=== PATIENT | male | born 1980 | race Caucasian/White ===

== ENCOUNTER 2017-06-01 10:07 | Emergency (ER) | payer BC, MEDICAID ==
[~2017-06-01] VITALS: Ht 198.1 cm; Wt 137.0 kg
[~2017-06-01 10:07] MED LIST: OMEP20CA9 PO; TRAM100C2 PO
[2017-06-01 10:10] VITALS: BP 120/90
[2017-06-01] MEDS ORDERED: KETOROLAC 30 MG/1 ML ONE (10:59)
[2017-06-01] MEDS ORDERED: KETOROLAC 30 MG/1 ML IM ONE (11:00)
== END 2017-06-01 11:59 | disposition home or self-care (01) ==
LOC: ED 11:49
DX: S83.92XA Sprain of unspecified site of left knee, initial encounter (principal); M25.462 Effusion, left knee; X58.XXXA Exposure to other specified factors, initial encounter; Y93.44 Activity, trampolining; Y92.89 Other specified places as the place of occurrence of the external cause; Y99.8 Other external cause status
CPT/HCPCS: 29515; 73564; 96372; 99284; J1885

== ENCOUNTER 2017-08-03 21:42 | Emergency (ER) | payer MEDICAID, OTHER ==
[~2017-08-03] VITALS: Ht 195.6 cm; Wt 140.9 kg
[2017-08-03 22:32] LABS: HEMATOCRIT 39.7 % (39.2-51.8); HEMOGLOBIN 13.8 g/dL (13.7-18.0); WHITE BLOOD COUNT 6.4 x10^3/uL (3.4-10)
[2017-08-03 22:44] LABS: BLOOD UREA NITROGEN 23 mg/dL (7-18)
[2017-08-03 23:02] LABS: ASPARTATE AMINO TRANSFERASE 29 U/L (15-37); IS PT STATUS REG ER OR PRE ER? YES
[2017-08-04] MEDS ORDERED: LORazepam 2 MG/ML, 1ML ONE (01:15)
[2017-08-04] MEDS ORDERED: SODIUM CHLORIDE 0.9% 1,000ML IVBOLUS ONE (01:30)
[2017-08-04] MEDS ORDERED: SODIUM CHLORIDE FLUSH 10ML SYR IVF ONE (01:30)
[2017-08-04] MEDS ORDERED: LORazepam 2 MG/ML, 1ML IVPush ONE (01:30)
[2017-08-04] MEDS ORDERED: OMNIPAQUE 350 MG/ML, 100ML BOTTLE ONE (01:45)
[2017-08-04 02:49] LABS: IS PT STATUS REG ER OR PRE ER? YES
[2017-08-04] MEDS ORDERED: KETOROLAC 30 MG/1 ML ONE (03:17)
[2017-08-04 03:28] VITALS: BP 119/84
[2017-08-04] MEDS ORDERED: KETOROLAC 30 MG/1 ML IVPush ONE (03:30)
== END 2017-08-04 03:31 | disposition home or self-care (01) ==
LOC: ED 23:59
DX: S29.012A Strain of muscle and tendon of back wall of thorax, initial encounter (principal); X58.XXXA Exposure to other specified factors, initial encounter; Y93.89 Activity, other specified; Y92.89 Other specified places as the place of occurrence of the external cause; Y99.8 Other external cause status
CPT/HCPCS: 36415; 71020; 71275; 80053; 83690; 83880; 84484; 85025; 93005; 96361; 96374; 96375; 99285; J1885; J2060; J7030; Q9967

== ENCOUNTER → 2017-11-06 | Outpatient (CLI) | payer MEDICAID ==
[~2017-11-06] MED LIST changes: +OMNIPAQUE 350 MG/ML, 100ML BOTTLE ONE
== END | disposition home or self-care (01) ==
LOC: CFH 08:16
PROVIDERS: ATTEND Surgery
DX: K40.20 Bilateral inguinal hernia, without obstruction or gangrene, not specified as recurrent (principal); Z98.890 Other specified postprocedural states
CPT/HCPCS: 74177; Q9967

== ENCOUNTER 2018-11-16 18:15 | Emergency (ER) | payer MEDICAID ==
[~2018-11-16] VITALS: Ht 182.9 cm; Wt 144.0 kg
[~2018-11-16 18:15] MED LIST changes: -OMNIPAQUE 350 MG/ML, 100ML BOTTLE ONE
[2018-11-16 18:23] VITALS: BP 135/83
[2018-11-16] MEDS ORDERED: LIDOCAINE-MPF 1%, 5ML ONE (18:54)
[2018-11-16] MEDS ORDERED: BUPIVACAINE 0.25% ONE (18:57)
[2018-11-16] MEDS ORDERED: LIDOCAINE-MPF 1%, 5ML INFIL ONE (19:30)
[2018-11-16] MEDS ORDERED: BUPIVACAINE 0.25% INFIL ONE (19:30)
--- NOTE | 2018-11-16 19:32 | NUR ---
RIGHT HAND LACERATION 3RD AND 4TH DIGIT
--- NOTE | 2018-11-16 19:38 | NUR ---
TECH AT BEDSIDE IRRIGATING WOUND
[2018-11-16] MEDS ORDERED: HYDROcodone/APAP 5/325 TABLET PO STA (20:01)
[2018-11-16] MEDS ORDERED: HYDROcodone/APAP 5/325 TABLET ONE (20:04)
--- NOTE | 2018-11-16 20:17 | NUR ---
PT DECLINED SUTURES STATING PAIN FROM INJECTION TOO MUCH. WOUND DRESSED AND MEDICATED FOR PAIN. TO BE DISCHARGED
== END 2018-11-16 20:21 | disposition home or self-care (01) ==
LOC: ED 19:45
DX: S61.202A Unspecified open wound of right middle finger without damage to nail, initial encounter (principal); F17.200 Nicotine dependence, unspecified, uncomplicated; W45.8XXA Other foreign body or object entering through skin, initial encounter; Y93.89 Activity, other specified; Y92.098 Other place in other non-institutional residence as the place of occurrence of the external cause; Y99.8 Other external cause status
CPT/HCPCS: 99283